=== PATIENT | female | born 1990 | race Caucasian/White ===

== ENCOUNTER 2021-06-21 15:28 | Emergency (ER) | payer MEDICAID ==
--- NOTE | 2021-06-21 17:17 | ED Physician Documentation ---
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 She continues to have perineal numbness and urinary frequency. She will have only small voids and will have to get up 15 times during the night. This morning she was unable to void and she feels pain in her bladder. She is having a difficult time walking or trying to get up on the bed secondary to the pain. It really hurts bad. She has had UTI previously but not for the past year. [place] has a primary in [place] who knows her well. Review of Systems Constitutional: denies: Fever Eyes: denies: Decreased vision Ears: denies: Ear pain Nose: denies: Congestion Throat: denies: Sore throat Cardiac: denies: Chest pain / pressure, Palpitations Respiratory: denies: Dyspnea, Cough GI: reports: Abdominal Swelling, Nausea. denies: Abdominal Pain, Vomiting, Constipation, Diarrhea : reports: Unable to Void Skin: denies: Rash Musculoskeletal: denies: Neck pain, Back pain, Extremity pain Neurologic: reports: Numbness (pre-existing). denies: Generalized weakness, Focal weakness PD PAST MEDICAL HISTORY - Allergies Allergies/Adverse Reactions: Allergies Allergy/AdvReac Type Severity Reaction Status Date / Time No Known Drug Allergies Allergy Verified 06/21/21 15:35 PD ED PE NORMAL - Vitals Vital signs reviewed: Yes (Hypertensive) - General General: Alert and oriented X 3, Well developed/nourished, Other (Appears to be in pain) - HEENT HEENT: Atraumatic, PERRL, EOMI - Neck Neck: Supple, no meningeal sign - Cardiac Cardiac: RRR, No murmur - Respiratory Respiratory: No respiratory distress, Clear bilaterally - Abdomen Abdomen: Soft, Other (There is marked suprapubic tenderness with minimal distention) - Back Back: No CVA TTP, No spinal TTP - Derm Derm: Normal color, Warm and dry, No rash - Extremities Extremities: No deformity, No edema - Neuro Neuro: Alert and oriented X 3, 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, No motor deficit, No sensory deficit, Normal speech Eye Opening: Spontaneous Motor: Obeys Commands Verbal: Oriented GCS Score: 15 - Psych Psych: Normal mood, Normal affect Results - Vitals Vitals: Vital Signs - 24 hr 06/21/21 06/21/21 15:35 18:39 Temperature 36.5 C 36.9 C Heart Rate 100 101 H Respiratory 16 16 Rate Blood Pressure 134/84 H 109/63 O2 Saturation 100 100 Oxygen O2 Source Room air - Labs Labs: Laboratory Tests 06/21/21 17:31 Urine Color YELLOW Urine Clarity HAZY Urine pH 5.5 Ur Specific Baxter 1.015 Urine Protein NEGATIVE Urine Glucose (UA) NEGATIVE Urine Ketones NEGATIVE Urine Occult Blood TRACE-LYSE Urine Nitrite NEGATIVE Urine Bilirubin NEGATIVE Urine Urobilinogen 0.2 (NORMAL) Ur Leukocyte Esterase NEGATIVE Urine RBC 0-5 Urine WBC 0-3 Ur Squamous Epith Cells NONE SEEN Urine Bacteria Moderate H Ur Microscopic Review INDICATED Urine Culture Comments NOT INDICATED Urine HCG, Qual NEGATIVE PD MEDICAL DECISION MAKING - ED course ED course: 31-year-old female with a 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 Today she has urinary retention and has quite a bit of pain associated with this. She has no evidence of infection today. She had 1100ml out. She felt much improved and I have indicated that she will need to wear this catheter for a week to 10 days up to 2 weeks and to follow-up with urology as indicated. I have asked her to get a referral from her primary to be seen in the next 1 to 2 weeks. Departure - Departure Disposition: 01 Home, Self Care Clinical Impression: Acute urinary retention Condition: Stable Instructions: ED Catheter Care MARIELOS Samuels Retention Urinary Female Follow-Up: EMI GANN MD, MPH [Primary Care Provider] - Comments: Jany, today you had acute urinary retention with 1100 mL of urine from the bladder. This will require your bladder to be decompressed for 1 to 2 weeks for to begin to work normally again. Follow-up with the urologist as referred by your primary care doctor in the next 1 to 2 weeks.
[2021-06-21 17:39] LABS: BILIRUBIN,URINE NEGATIVE (NEGATIVE); GLUCOSE, URINE (UA) NEGATIVE (NEGATIVE); KETONES,URINE (UA) NEGATIVE (NEGATIVE); LEUKOCYTE ESTERASE, URINE NEGATIVE (NEGATIVE); NITRITE,URINE NEGATIVE (NEGATIVE); OCCULT BLOOD,URINE TRACE-LYSE (NEGATIVE); PH,URINE 5.5 PH (5.0-7.5); PROTEIN,URINE NEGATIVE (NEGATIVE); UROBILINOGEN,URINE 0.2 (NORMAL) E.U./dL (NORMAL)
[2021-06-21 17:41] LABS: CLARITY,URINE HAZY (CLEAR); HCG UR QUAL NEGATIVE
[2021-06-21 17:54] LABS: BACTERIA,URINE Moderate /HPF (None Seen); RBC,URINE 0-5 /HPF (0-5); SQUAMOUS EPITHELIAL CELL,UR NONE SEEN (<= Few); WBC,URINE 0-3 /HPF (0-5)
[2021-06-21 18:40] VITALS: BP 109/63
== END 2021-06-21 19:23 | disposition home or self-care (01) ==
LOC: ED 15:28
DX: R33.9 Retention of urine, unspecified (principal)
CPT/HCPCS: 51702; 81001; 81003; 81025; 87086; 99282; 99283